=== PATIENT | female | born 1940 | race Caucasian/White ===

== ENCOUNTER 2016-11-07 10:15 | Outpatient (RCR) | payer BC, MEDICARE ==
[~2016-11-07 10:15] MED LIST: ESZOPICOLONE; FLEXERIL; LEVOTHYROXINE PO; WELLBUTRIN 100100 MG PO; hormone replacement
== END 2016-11-10 08:45 | disposition home or self-care (01) ==
LOC: MKS.ESL.PT 10:15
DX: M75.01 Adhesive capsulitis of right shoulder (principal); M77.01 Medial epicondylitis, right elbow
CPT/HCPCS: G8984-GP; G8987-GP; G8988-GP; G8989-GP

== ENCOUNTER → 2017-04-27 | Outpatient (CLI) | payer BC, MEDICARE | LOC: MC.RAD 13:30 | DX: Z12.31 Encounter for screening mammogram for malignant neoplasm of breast (principal) ==

== ENCOUNTER → 2017-09-04 | Outpatient (CLI) | payer BC, MEDICARE | LOC: COL.VAS 07:25 | DX: I08.8 Other rheumatic multiple valve diseases (principal) ==

== ENCOUNTER 2017-11-26 10:00 | Outpatient (RCR) | payer BC, MEDICARE ==
[2017-12-24] MEDS ORDERED: AMBIEN 5MG TABLE5 MG PO (09:07)
[2017-12-24] MEDS ORDERED: NORCO 325 MG-51 TAB PO (09:07)
== END 2018-01-14 11:38 | disposition home or self-care (01) ==
LOC: MKS.ESL.PT 10:00
DX: M25.552 Pain in left hip (principal)
CPT/HCPCS: G0283-GP

== ENCOUNTER → 2017-12-03 | Outpatient (CLI) | payer BC, MEDICARE | LOC: COL.RAD 07:34 | DX: M51.27 Other intervertebral disc displacement, lumbosacral region (principal); M48.07 Spinal stenosis, lumbosacral region; M48.8X6 Other specified spondylopathies, lumbar region ==

== ENCOUNTER → 2017-12-29 | Outpatient (CLI) | payer BC, MEDICARE ==
[~2017-12-29] VITALS: Ht 165.1 cm; Wt 60.4 kg
[~2017-12-29] MED LIST changes: +AMBIEN 5MG TABLE5 MG PO; +NORCO 325 MG-51 TAB PO
[2017-12-29 09:05] VITALS: BP 116/66; PULSE 73
[2017-12-29 10:55] VITALS: BP 124/70; PULSE 71
== END ==
LOC: COL.RAD 08:43
DX: M51.86 Other intervertebral disc disorders, lumbar region (principal)
CPT/HCPCS: J3301

== ENCOUNTER → 2018-05-17 | Outpatient (CLI) | payer BC, MEDICARE | LOC: MC.RAD 09:47 | DX: Z12.31 Encounter for screening mammogram for malignant neoplasm of breast (principal); Z98.890 Other specified postprocedural states ==

== ENCOUNTER → 2018-10-27 | Outpatient (CLI) | payer BC, MEDICARE | LOC: COL.RAD 10:02 | DX: M79.605 Pain in left leg (principal) ==

== ENCOUNTER → 2019-03-18 | Outpatient (CLI) | payer BC, MEDICARE ==
[~2019-03-18] VITALS: Ht 165.1 cm; Wt 62.0 kg
[~2019-03-18] MED LIST changes: -LEVOTHYROXINE PO; +SYNTHROID0.1 MG/TAB PO; +WELLBUTRIN SR150 M1 PO
[2019-03-18 13:42] VITALS: BP 117/51; PULSE 70
[2019-03-18 14:25] VITALS: BP 121/77; PULSE 70
--- NOTE | 2019-03-18 15:02 | NUR ---
PT REPORTED THAT HER BUTTOCKS ARE NUMB. SHE GETS WORRIED AND ASKED HOW LONG THIS WILL LAST. PRIOR TO PROCEDURE PT REPORTED PAIN 6/10 WHEN SHE FIRST ARRIVED AFTER THE PROCEDURE SHE DENIED PAIN , NUMBNESS OR TINGLING. TIME HAS GONE ON PT REPORTS INCREASED NUMBNESS AND TINGLING WITH PAIN. PT TRIED TO STAND AND WAS HAVING PROBLEMS STANDING ON HER OWN. SHE STATES SHE WANTS TO GO HOME. DR ELENA CAME OVER AND TALKED WITH THE PT AND . HE TOLD HER IT MAY TAKE SEVERAL HOURS FOR THE NUMBNESS TO GO AWAY. SHE TOLD HER HUSBANAD SHE WANTED TO GO HOME. I SPOKE TO THEM AND TOLD THEM WITH THE NUMBNESS AND SUCH SHE WAS AT RISK FOR FALLS AND POSSIBLY HIP FRACTURES DUE TO FALLS. SHE STATES SHE WOULD BE OK AND AGREES. THEY WERE TAKEN DOWN IN A WHEELHCAIR TO POV AND ASSISTED INTO POV.
== END ==
LOC: COL.RAD 13:12
DX: M51.9 Unspecified thoracic, thoracolumbar and lumbosacral intervertebral disc disorder (principal)
CPT/HCPCS: J3301

== ENCOUNTER → 2019-08-18 | Outpatient (CLI) | payer BC, MEDICARE | LOC: MC.RAD 09:49 | DX: N64.4 Mastodynia (principal) | CPT/HCPCS: G0279 ==

== ENCOUNTER → 2021-05-29 | Outpatient (CLI) | payer BC, MEDICARE | LOC: COL.RAD 09:28 | DX: R19.7 Diarrhea, unspecified (principal); R11.0 Nausea ==

== ENCOUNTER → 2021-09-11 | Outpatient (CLI) | payer BC, MEDICARE | LOC: MC.RAD 07-23 13:00 | DX: Z12.31 Encounter for screening mammogram for malignant neoplasm of breast (principal) ==

== ENCOUNTER → 2023-04-29 | Outpatient (CLI) | payer BC, MEDICARE ==
[~2023-04-29] MED LIST changes: +COSOPT 2%-0.5%10 ML OU; +DOXYCYCLINE HY100 MG PO; +LEVAQUIN 5500 MG/TA1 PO; +LOMOTIL 0.025 M1 TAB PO; +LOPRESSOR 550 MG/TAB PO; +LUMIGAN 2.5 ML2.5 M1 OP; +PERCOCET 325 MG1 TA2 PO; +PERCOCET 325 MG1 TAB PO; +XANAX .25M0.25 MG/TA PO; +XARELTO15 MG PO
== END ==
LOC: COL.VAS 11:06
DX: M79.604 Pain in right leg (principal)

== ENCOUNTER → 2024-04-05 | Outpatient (CLI) | payer BC, MEDICARE | LOC: MC.RAD 10:42 | DX: Z12.31 Encounter for screening mammogram for malignant neoplasm of breast (principal) ==